=== PATIENT | female | born 1980 | race Caucasian/White ===

== ENCOUNTER 2023-09-29 07:30 | Emergency (ER) | payer MEDICAID ==
[~2023-09-29] VITALS: Ht 170.2 cm; Wt 120.5 kg
[2023-09-29 07:43] VITALS: TEMP 98.2
[2023-09-29] MEDS ORDERED: ZOFRAN ODT4 MG PO (08:59)
[2023-09-29 09:20] VITALS: BP 117/67; PULSE 86
[2023-10-01] MEDS ORDERED: PREDNISONE20 MG PO (20:31)
== END 2023-09-29 09:20 | disposition home or self-care (01) ==
LOC: COL.ER 07:30
PROVIDERS: Emergency Medicine
DX: G43.909 Migraine, unspecified, not intractable, without status migrainosus (principal); F17.210 Nicotine dependence, cigarettes, uncomplicated
CPT/HCPCS: J0780; J1100; J1200; J7120

== ENCOUNTER → 2023-12-10 | Outpatient (CLI) | payer MEDICAID ==
[~2023-12-10] MED LIST: Albuterol 0.083% Neb Soln 2.5 MG/3 ML UD IH ONE; Iohexol 300 - 100 ML VIAL IV ONE; NS 100 ML IV SCH; PREDNISONE20 MG PO; ZOFRAN ODT4 MG PO
== END ==
LOC: COL.RAD 14:15
DX: R04.2 Hemoptysis (principal); R06.02 Shortness of breath
CPT/HCPCS: Q9967